=== PATIENT | male | born 2000 | race Caucasian/White ===

== ENCOUNTER 2020-10-30 10:10 | Day surgery (SDC) | payer OTHER ==
[~2020-10-30] VITALS: Ht 175.3 cm; Wt 73.4 kg
[2020-10-30] MEDS ORDERED: MORPHINE 4 MG/ML 1ML VIAL/SYRINGE (J2270) IV ONE (11:25)
[2020-10-30] MEDS ORDERED: NS 1,000 ML IV ONE (11:25)
--- NOTE | 2020-10-30 11:30 | REP ---
INDICATION: TRAUMA. COMPARISON: None. TECHNIQUE: Multiple ultrasonographic images of the scrotum including Doppler ultrasound. FINDINGS: The right testis measures 6.2 x 3.5 x 4.9 cm. The left testis measures 5.1 x 2.8 x 3.1 cm. At the lower pole of the right testis there are 2 hypoechoic zones demonstrating no vascular flow with color Doppler ultrasound 1 measuring 1.5 x 0.6 x 1.2 cm the other measuring 1.5 x 1.3 x 1.1 cm. This may represent testicular fracture. The right testicular tunica demonstrates a zone of thickening and irregularity which may represent edema or sub 2 neck hematoma or combination. There is a complex hydrocele on the right which may rep may represent There is vascular flow in the left testis with the Doppler resistive index in the parenchymal arteries measuring 0.60. The right epididymal head measures 11.4 mm in the left epididymal head measures 9.7 mm. There are no epididymal head cysts. The right scrotal wall thickness is edematous measuring 4.0 mm. The left scrotal wall measures 2.3 mm thickness. Hemorrhage. There is vascular flow in the right testis otherwise with the Doppler resistive index in the parenchymal arteries measuring 0.61. The left testis is homogeneous and otherwise unremarkable. IMPRESSION: Probable fracture at the lower pole of the right testis. Right testicular tunica edema, versus sub tunica hemorrhage versus combination. Right hemiscrotal hematoma versus hemorrhagic hydrocele. Right scrotal wall edema. There is vascular flow in both testes. <Electronically signed by Yao Hernandez > 10/30/20 1350
[2020-10-30 11:42] LABS: BASO # 0.1 10^3/uL (0.0-0.2); BASO % 0.3 % (0.0-1.0); EOS % 0.1 % (0.0-3.0); HEMATOCRIT 49.7 % (42.0-52.0); HEMOGLOBIN 16.8 g/dl (13.5-17.5); LYMPH % 5.6 % (24.0-44.0); MEAN CORPUSCULAR HEMOGLOBIN 30.8 pg (27.0-33.0); MEAN CORPUSCULAR HGB CONC 33.8 g/dl (32.0-36.5); MEAN CORPUSCULAR VOLUME 91.2 fl (80.0-96.0); MONO # 0.7 10^3/uL (0.0-0.8); MONO % 3.8 % (2.0-8.0); NEUTROPHILS # 16.2 10^3/uL (1.5-8.5); NEUTROPHILS % 89.8 % (36.0-66.0); PLATELET COUNT, AUTOMATED 384 10^3/uL (150-450); RED BLOOD COUNT 5.45 10^6/uL (4.30-6.10); WHITE BLOOD COUNT 18.1 10^3/uL (4.0-10.0)
[2020-10-30] MEDS ORDERED: HOME MED LIST COMPLETE! XX SCH (12:00)
[2020-10-30 12:08] LABS: BLOOD UREA NITROGEN 10 MG/DL (7-18); CALCIUM LEVEL 9.6 MG/DL (8.5-10.1); CARBON DIOXIDE LEVEL 28 MEQ/L (21-32); CHLORIDE LEVEL 107 MEQ/L (98-107); CREATININE FOR GFR 0.85 MG/DL (0.70-1.30); GLUCOSE, FASTING 91 MG/DL (70-100); POTASSIUM SERUM 3.9 MEQ/L (3.5-5.1); SODIUM LEVEL 140 MEQ/L (136-145)
[2020-10-30] MEDS ORDERED: BUPIVACAINE/EPIN 0.25% 30 ML VIAL As Ordered ONE (12:45)
[2020-10-30] MEDS ORDERED: MORPHINE 2 MG/ML 1ML VIAL (J2270) IV PRN (13:45)
[2020-10-30] MEDS ORDERED: ceFAZolin 2 GM/D5W 50 ML IV BAG (J0690 PER 500MG) As Ordered ONE (16:09)
[2020-10-30] MEDS ORDERED: propofoL 200 MG/20 ML VIAL As Ordered ONE ×2 (16:12→16:43)
[2020-10-30] MEDS ORDERED: dexameTHASONE 4 MG/ML 1ML VIAL (J1100 PER 1MG) As Ordered ONE (16:12)
[2020-10-30] MEDS ORDERED: LIDOCAINE 2% 100MG/5ML SDV (FOR ANES.) As Ordered ONE (16:12)
[2020-10-30] MEDS ORDERED: fentaNYL 250 MCG/5 ML INJECTION (J3010) As Ordered ONE (16:12)
[2020-10-30] MEDS ORDERED: ONDANSETRON 4MG/2ML VIAL As Ordered ONE (16:12)
[2020-10-30] MEDS ORDERED: MIDAZOLAM INJ 2MG/2ML VIAL (J2250 PER 1MG) As Ordered ONE (16:13)
--- NOTE | 2020-10-30 16:20 | CR.PDOC ---
General Date of Consultation: Oct 30, 2020 Consultation REASON FOR CONSULTATION/CHIEF COMPLAINT: Right testicular trauma with probable fracture the lower pole of the right testicle with associated hematoma HISTORY OF PRESENT ILLNESS: The patient is a 20-year-old gentleman in the [employer] who was doing physical training and he got hit in the right scrotal region with a baseball. He had severe pain and then noticed significant swelling. He came to the ER and a scrotal ultrasound found a probable fracture of the lower pole testicle with associated hematoma and swelling. After discussing all different options, alternatives, risks, and benefits it was decided to bring him to the operating room for scrotal exploration. He understands that if we can repair the testicle we will but if not he will need an orchiectomy. He would be interested in a testicular prosthesis in the future but we do not have any available in the OR today. He is in understanding of this. ALLERGIES: Please see below. HOME MEDICATIONS: Please see below. PAST MEDICAL HISTORY: -Scoliosis PAST SURGICAL HISTORY: -Right eye surgery FAMILY HISTORY: Noncontributory SOCIAL HISTORY: Marital status and/or living arrangements: Not Children: No children Employment: In the [employer] Tobacco use: 3 cigarettes a day ETOH: Occasionally Illicit drug use: Denies IV drug use: Denies Other relevant social factors: None REVIEW OF SYSTEMS: A 12 system review was negative PHYSICAL EXAMINATION: VITAL SIGNS: Please see below. GENERAL APPEARANCE: Well-developed well-nourished gentleman HEENT: Normocephalic atraumatic, PERRLA EOMI RESPIRATORY: Clear to auscultation and percussion CARDIOVASCULAR: Regular rate and rhythm ABDOMEN: Soft and nontender EXTREMITIES: No cyanosis clubbing or edema NEUROLOGICAL: Nonfocal PSYCHIATRIC: Alert and oriented 3 GENITOURINARY: Significant right testicular swelling and pain to touch without any significant erythema LABORATORY DATA: Please see below. ASSESSMENT/PLAN: -Testicular trauma with a baseball with immediate severe pain and swelling with a scrotal ultrasound showing a probable fracture at the lower pole the right testicle with associated hematoma. We are going to bring him to the operating room for right scrotal exploration with possible testicular repair versus removal. Informed consent was obtained in both verbal and written form. He understands that his left testicle seems to be completely normal and should f unction fine as far as children and testosterone is concerned. He also understands that if we do just a repair on the right testicle that there is a risk of needing to come back to the operating room for prolonged infection, pain, or bleeding. He is willing to take this risk if we can save part of the testicle. Vital Signs/I&O Vital Signs Date Time Temp Pulse Resp B/P (MAP) Pulse Ox O2 Delivery O2 Flow Rate FiO2 10/30/20 15:19 99.0 62 18 135/70 (91) 100 Room Air Laboratory Data Labs 24H Laboratory Tests 2 10/30/20 11:27: Immature Granulocyte % (Auto) 0.4, Neutrophils (%) (Auto) 89.8H, Lymphocytes (%) (Auto) 5.6L, Monocytes (%) (Auto) 3.8, Eosinophils (%) (Auto) 0.1, Basophils (%) (Auto) 0.3, Neutrophils # (Auto) 16.2H, Lymphocytes # (Auto) 1.0L, Monocytes # (Auto) 0.7, Eosinophils # (Auto) 0.0, Basophils # (Auto) 0.1, Nucleated Red Blood Cells % (auto) 0.0, Anion Gap 5L, Calcium Level 9.6, Coronavirus (COVID- 19)(PCR) NEGATIVE CBC/BMP Laboratory Tests 10/30/20 11:27 Allergies Coded Allergies: No Known Allergies (Unverified , 10/30/20) Home Medications No Active Prescriptions or Reported Meds VIVIANA DIAL MD Oct 30, 2020 16:20
[2020-10-30] MEDS ORDERED: ceFAZolin 1GM VIAL (J0690 PER 500MG) As Ordered ONE (16:48)
[2020-10-30] MEDS ORDERED: ACETAMINOPHEN 1000MG 100ML IV BTL (OFIRMEV) (J0131 PER 10MG) As Ordered ONE (17:03)
[2020-10-30] MEDS ORDERED: KETOROLAC 60MG 2ML VIAL As Ordered ONE (17:06)
[2020-10-30] MEDS ORDERED: METOCLOPRAMIDE INJ 10MG/2ML VIAL (J2765 PER 1) As Ordered ONE (17:06)
[2020-10-30] MEDS ORDERED: BACITRACIN OINTMENT 30GM TUBE As Ordered ONE (17:07)
[2020-10-30] MEDS ORDERED: LACRILUBE (AKWA TEARS) OPHTH OINT 3.5 GM As Ordered ONE (17:14)
--- NOTE | 2020-10-30 17:32 | ROOPDOC ---
[facility] Report Of Operation Report of Operation DATE OF PROCEDURE: 10/30/20 PREPROCEDURE DIAGNOSES: Right testicular fracture POSTPROCEDURE DIAGNOSES: Right testicular fracture with unsalvageable right testicle PROCEDURE PERFORMED: Right scrotal orchiectomy SURGEON: Missy Dial MD CATHOLIC PRIEST: None ANESTHESIA: Gen. ESTIMATED BLOOD LOSS: Approximately 10 mL. 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 He fell immediately to the ground with severe pain and swelling. A scrotal ultrasound was done which showed a probable fracture of what they saw was lower pole of the testicle with a hematoma but this was actually throughout the middle of the testicle. All options, alternatives, risks, and benefits were discussed with the patient and it was decided to bring him urgently to the operating room. We discussed that if we could we would salvage the testicle and that there would be a higher risk of later on hematoma and infection but that sometimes he need to remove the testicle depending on the findings intraoperatively. Informed consent was obtained in both verbal and written form. He asked about testicular prosthesis sees and this can be done in the future but unfortunately we don't have any available in the operating room today and this decreased to be taking care of operatively today. DESCRIPTION OF PROCEDURE: The patient was brought in the operating room and sequential compression devices were in place and preoperative antibiotics had been given with 2 g of Ancef. The patient was then placed in the supine position and general anesthesia was induced. He was prepped and draped in the usual fashion. An incision was made over the right hemiscrotum and when DrRonald's fascia was opened and the testicle was delivered there was seen to be a very large traction through the middle portion of the testicle with a large hematoma and significant bleeding. Unfortunately this was unsalvageable because there was very little tunica albuginea they could be brought back together and most of the testicle insides was out of the tunica albuginea with multiple areas of bleeding . At this point first the vas deferens was and clamped and suture ligated with 2-0 silk. The spermatic cord was then clamped as close to the testicles possible to at least give him some possible volume in the scrotal sac and this was also suture ligated using 0 silk sutures. Hemostasis was obtained. The area was irrigated with antibiotic solution. Dartos fascia was closed using a running 2-0 chromic suture. Scrotal skin was closed using a 2-O chromic suture. MISSY DIAL MD Oct 30, 2020 17:32
[2020-10-30] MEDS ORDERED: oxyCODONE 5MG TAB PO PRN (17:45)
[2020-10-30] MEDS ORDERED: HYDROMORPHONE HCL 0.5 MG/ 0.5 ML SYRINGE (J1170 PER 1) IV PRN (17:45)
[2020-10-30] MEDS ORDERED: fentaNYL 100 MCG/2 ML INJECTION (J3010) IV PRN (17:45)
[2020-10-30] MEDS ORDERED: ONDANSETRON 4MG/2ML VIAL IV PRN (17:45)
[2020-10-30] MEDS ORDERED: LR 1,000 ML IV SCH (17:45)
[2020-10-30 19:45] VITALS: BP 144/81
== END 2020-10-30 19:52 | disposition home or self-care (01) ==
LOC: M ED 10:10 → M SDC 11:40
PROVIDERS: ATTEND Specialist
DX: S39.848A Other specified injuries of external genitals, initial encounter (principal); W21.03XA Struck by baseball, initial encounter; Y93.64 Activity, baseball; Y99.1 Military activity; F17.210 Nicotine dependence, cigarettes, uncomplicated; M41.9 Scoliosis, unspecified
CPT/HCPCS: 54520; 76870; 80048; 85025; 86850; 86900; 86901; 88305; 93976; 96361; 96374; 96375; 96376; 99284; J0131; J0690; J1100; J1885; J2250; J2270; J2405; J2765; J3010; U0002

== ENCOUNTER 2020-11-06 15:20 | Emergency (ER) | payer OTHER ==
[~2020-11-06] VITALS: Ht 177.8 cm; Wt 71.4 kg
[2020-11-06] MEDS ORDERED: CEPH500C PO (21:12)
[2020-11-06 21:38] VITALS: BP 120/56
== END 2020-11-06 21:39 | disposition home or self-care (01) ==
LOC: M ED 15:20
DX: T81.31XA Disruption of external operation (surgical) wound, not elsewhere classified, initial encounter (principal); Z90.79 Acquired absence of other genital organ(s)